=== PATIENT | female | born 1935 | race Caucasian/White ===

== ENCOUNTER → 2016-05-17 | Outpatient (CLI) | payer OTHER | LOC: FIMAGING 09:00 | PROVIDERS: ATTEND Surgery | DX: I65.23 Occlusion and stenosis of bilateral carotid arteries (principal); I10 Essential (primary) hypertension ==

== ENCOUNTER → 2016-09-24 | Outpatient (CLI) | payer OTHER | LOC: BMCIMAGING 13:30 | PROVIDERS: ATTEND Family Medicine | DX: J18.1 Lobar pneumonia, unspecified organism (principal) ==

== ENCOUNTER → 2016-10-24 | Outpatient (CLI) | payer OTHER | LOC: BHFA 08:45 | PROVIDERS: ATTEND Internal Medicine Cardiovascular Disease | DX: I10 Essential (primary) hypertension (principal); G45.8 Other transient cerebral ischemic attacks and related syndromes ==

== ENCOUNTER → 2016-11-20 | Outpatient (CLI) | payer OTHER ==
[~2016-11-20] MED LIST: IOPAMIDOL (ISOVUE 370) 100 ML BTL IV ONE
== END ==
LOC: FIMAGING 07:45
PROVIDERS: ATTEND Internal Medicine Cardiovascular Disease
DX: G45.8 Other transient cerebral ischemic attacks and related syndromes (principal)
CPT/HCPCS: 70498; Q9967

== ENCOUNTER → 2016-12-13 | Outpatient (CLI) | payer OTHER | LOC: FIMAGING 15:28 | PROVIDERS: ATTEND Psychiatry & Neurology Neurology | DX: I65.02 Occlusion and stenosis of left vertebral artery (principal) ==

== ENCOUNTER → 2017-02-28 | Outpatient (CLI) | payer OTHER | LOC: BHFA 10:45 | PROVIDERS: ATTEND Internal Medicine Cardiovascular Disease | DX: I25.10 Atherosclerotic heart disease of native coronary artery without angina pectoris (principal) ==

== ENCOUNTER → 2017-02-28 | Outpatient (CLI) | payer OTHER | LOC: BHFA 10:45 | PROVIDERS: ATTEND Internal Medicine Cardiovascular Disease | DX: I63.9 Cerebral infarction, unspecified (principal); I77.9 Disorder of arteries and arterioles, unspecified ==

== ENCOUNTER → 2017-03-11 | Outpatient (CLI) | payer OTHER | LOC: BMCIMAGING 15:16 | PROVIDERS: ATTEND Internal Medicine | DX: K59.00 Constipation, unspecified (principal); R31.9 Hematuria, unspecified | CPT/HCPCS: 74020; G0463; 81003-QW-PO ==

== ENCOUNTER 2017-07-05 19:14 | Emergency (ER) | payer OTHER ==
[2017-07-05] MEDS ORDERED: LET GEL TOPICAL 1 EA SYR TP ONE ×2 (20:16→20:19)
[2017-07-05] MEDS ORDERED: ACETAMINOPHEN 325 MG TAB PO ONE (20:17)
--- NOTE | 2017-07-05 20:53 | EDPHY ---
General Time Seen by Provider: 07/05/17 19:49 Narrative: CHIEF COMPLAINT: HISTORY OF PRESENT ILLNESS: REVIEW OF SYSTEMS: Ten systems reviewed and are negative unless otherwise noted in the HPI PCP: SPECIALISTS: PAST MEDICAL HISTORY: PAST SURGICAL HISTORY: SOCIAL HISTORY: FAMILY HISTORY: EXAMINATION General Appearance: Alert, no distress Head: normocephalic, atraumatic Eyes: Pupils equal and round, no conjunctival pallor or injection ENT, Mouth: Mucous membranes moist Neck: Normal inspection, supple, non-tender Respiratory: Lungs are clear to auscultation Cardiovascular: Regular rate and rhythm Gastrointestinal: Abdomen is soft and nontender Back: non-tender, no bony abnormalities Neurological: A&O, nonfocal, normal gait Skin: Warm and dry, no rash Extremities: Nontender, no pedal edema Psychiatric: Mood and affect normal DIFFERENTIAL DIAGNOSES: Including but not limited to MDM: SUPERVISION: - History Smoking Status: Never smoked - Objective Vital Signs: Initial Vital Signs Temperature (C) 97.9 F 07/05/17 19:24 Heart Rate 67 07/05/17 19:24 Respiratory Rate 18 07/05/17 19:24 Blood Pressure 157/69 H 07/05/17 19:24 O2 Sat (%) 92 07/05/17 19:24 O2 Delivery Mode Room Air Allergies/Adverse Reactions: No Known Allergies Allergy (Verified 07/05/17 19:28) Home Medications: Medication Instructions Recorded Levothyroxine [Synthroid 150 mcg 0.125 mcg PO DAILY@1000 08/29/10 (*)] Lisinopril [Zestril 10 mg (*)] 10 mg PO DAILY 08/29/10 Metoprolol Tartrate 09/22/13 Losartan Potassium 07/05/17 Unk Blood Thinner 07/05/17 Unk Osteoporosis Med 07/05/17 Departure - Departure Referrals: Hiro White MD [Primary Care Provider] - As per Instructions
--- NOTE | 2017-07-05 21:11 | EDPHY ---
H & P Stated Complaint: pt tripped/fell, lacs to both hands and chin, pain in RUE/R chest - Personal History Tetanus Vaccine Date: < than 10 yrs - Medical/Surgical History Hx Asthma: No Hx Chronic Respiratory Disease: No Hx Diabetes: No Hx Cardiac Disease: Yes Hx Renal Disease: No Hx Cirrhosis: No Hx Alcoholism: No Hx HIV/AIDS: No Hx Splenectomy or Spleen Trauma: No Other PMH: HX: HTN, HYPOTHYROID, osteoporosis, tonsillectomy, appendectomy, hip surg, L knee replacement, varicose vein surg - Social History Smoking Status: Never smoked Time Seen by Provider: 07/05/17 19:49 HPI/ROS: CHIEF COMPLAINT: Chin laceration, hand and foot pain HISTORY OF PRESENT ILLNESS: This is an 82-year-old female in general good health who presents after suffering a mechanical fall in which she stumbled, fell forward striking her chin on cement. She did not strike her skull or lose consciousness. She landed on her outstretched hands and then her chest. She has some pain at the site of skin tears on her palms and reports chest pain in the midsternal region. She was not experiencing chest pain prior to the fall and denies any preceding symptoms such lightheadedness or headache. She does not currently feel short of breath. She also reports some pain in the 1st and 2nd toes on the right foot. She is not aware of any numbness or weakness of arms or legs. REVIEW OF SYSTEMS: A ten point review of systems was performed and is negative with the exception of the items mentioned in the HPI. Past medical history: Hypertension Osteoporosis Varicose veins Hypothyroid Past surgical history: Tonsillectomy Appendectomy Hip surgery Knee surgery Family history: Social history: She is . She raised 5 children. No tobacco use. General: The patient is in no acute distress. The patient is alert. Bigg Coma Score is 15 . Head: Normocephalic/atraumatic. No Flores's sign. No raccoon eyes. Neck: Nontender with palpation of the cervical spine. Trachea is midline. Nexus criteria are negative (no midline tenderness or distracting injury, mental status is not altered, no focal neurologic deficits). Eyes: PERRLA. EOMI. No subconjunctival hemorrhage. Ears nose and throat: No hemotympanum. Nares are patent and without clotted nasal blood. No dental injury or malocclusion. No trismus. Airway is patent. There is a 2.5 cm laceration underneath her chin. No palpable facial bone tenderness or deformity. Lungs: No rib tenderness, crepitus, or subcutaneous emphysema. She has tenderness over the sternum, no crepitance. Breath sounds are equal and audible bilaterally. No wheezes, rales, or rhonchi. Cardiac: Heart has regular rate and rhythm without murmur, rub, or gallop. Abdomen: Soft, nontender, and nondistended. No guarding or rebound. Bowel sounds are present. Back: No vertebral tenderness. Skin: No ecchymoses. Skin is warm and dry. Scattered skin tears over the palms of both hands. No tenderness palpation of the carpals, metacarpals, and phalanges. Full active range of motion of both hands. Pulses: 2+ radial pulses bilaterally. 2+ dorsalis pedis pulses bilaterally. Extremities: No bony point tenderness with evaluation of long bones of all 4 extremities. Pelvis is stable. Hips are nontender. She has tenderness palpation of the right great and 2nd toe. No palpable bony deformity. No right ankle tenderness or pain with active range of motion. Pulses: 2+ femoral and dorsalis pedis pulses bilaterally. Neuro: The patient is alert and oriented. Sensation is intact to light touch of all 4 extremities. Strength is 5/5 with testing of major motor groups in upper and lower extremities. PERRLA. EOMI. Facial expression symmetric. Hearing intact to spoken voice. (Heena Granger) Constitutional: Initial Vital Signs Temperature (C) 36.6 C 07/05/17 19:24 Heart Rate 67 07/05/17 19:24 Respiratory Rate 18 07/05/17 19:24 Blood Pressure 157/69 H 07/05/17 19:24 O2 Sat (%) 92 07/05/17 19:24 O2 Delivery Mode Room Air Allergies/Adverse Reactions: No Known Allergies Allergy (Verified 07/05/17 19:28) Home Medications: Medication Instructions Recorded Levothyroxine [Synthroid 150 mcg 0.125 mcg PO DAILY@1000 08/29/10 (*)] Lisinopril [Zestril 10 mg (*)] 10 mg PO DAILY 08/29/10 Metoprolol Tartrate 09/22/13 Losartan Potassium 07/05/17 Unk Blood Thinner 07/05/17 Unk Osteoporosis Med 07/05/17 Medical Decision Making - Diagnostics Imaging: I viewed and interpreted images myself Procedures: My involvement the care this patient is solely for procedure. Please see the note of the attending physician for all other aspects of care. She has chin laceration status post fall that does require suture repair. PROCEDURE: Laceration repair Consent: Verbal Location: Chin Length of repair: 2.5 cm Complexity: Simple Layer involvement: Single Anesthesia: Local per 1% lidocaine plain. 5 mL Irrigation: Extensive Debridement: None Procedure description: Following good anesthesia, the wound was copiously irrigated. Wound bed was explored with a sterile glove, and there is no foreign body noted. Wound borders were approximated well with good hemostasis. Tolerated well without complication. Suture/Staple material: 6-0 Prolene, 3 simple interrupted sutures Wound care: Routine as discussed Suture/Staple removal: 5-7 Days (Jaswinder High) ED Course/Re-evaluation: Laceration was repaired by REX Gottlieb. I reviewed her chest x-ray. I do not see evidence of a sternal or rib fracture. No pneumothorax. I do not see fracture dislocation on the x-rays of the right foot. Hand skin tears cleaned and dressed by ED medical delivery technician. Patient serially examined. She remained neurologically intact, with no new injuries identified. We discussed CT of head. She did not strike her head, has no headache, no confusion, no visual changes, no new numbness or weakness. She would like to forego head scanning. (Heena Granger) - Data Points Medications Given: Discontinued Medications Acetaminophen (Tylenol) 650 mg PO EDNOW ONE Stop: 07/05/17 20:18 Last Admin: 07/05/17 20:21 Dose: 650 mg Tetracaine/Epinephrine/Lidocaine (Let Gel Topical) 1 ea TP EDNOW ONE Stop: 07/05/17 20:20 Last Admin: 07/05/17 20:20 Dose: 1 ea Departure - Departure Disposition: Home, Routine, Self-Care Clinical Impression: Laceration of chin, Abrasion of hand and fingers, Foot contusion, Contusion of chest wall with intact skin Condition: Good Instructions: Contusion in Adults (ED), Abrasion (ED), R.I.C.E. Treatment (ED) , Facial Laceration (ED) Additional Instructions: Adult Pain & Fever Control: We recommend Acetaminophen (Tylenol) and Ibuprofen (Motrin,Advil) for pain and fever control. When fever is high or pain severe, both drugs can be used at the same time, but at different intervals. Please note the time differences. Your dose is: Acetaminophen 650mg every 4 to 6 hours Ibuprofen 400mg every 8 hours with food OR Note: do not take Acetaminophen with Hydrocodone (Vicodin, Lortab) or Oycodone (Percocet). These medications also contain Acetaminophen. No more than 3000mg of Acetaminophen should be taken in 24 hours (for an adult). If you develop new or concerning symptoms such as headache, confusion, change in vision, vomiting, seizures, weakness of an arm or leg, new numbness--you should call 911 and be re-evaluated immediately. As we discussed, you take a blood thinner and this can increase your chances of having a more serious head injury, with bleeding. I do not find any evidence of that kind of injury right now but I want you to be alerted to the danger signs that should prompt you to return immediately. The stitches should be removed in 7 days. Keep them clean and dry for 24 hours. After that, you can gently wash you chin and dab it dry. You can cover the stitches with a regular bandaid if you'd like. Referrals: Hiro White MD [Primary Care Provider] - As per Instructions
[2017-07-05 21:47] VITALS: BP 148/68
== END 2017-07-05 21:46 | disposition home or self-care (01) ==
PROC: 0HQ1XZZ Repair Face Skin, External Approach (ICD-10-PCS; principal; 2017-07-05)
DX: S01.81XA Laceration without foreign body of other part of head, initial encounter (principal); S90.31XA Contusion of right foot, initial encounter; S20.219A Contusion of unspecified front wall of thorax, initial encounter; S60.511A Abrasion of right hand, initial encounter; S60.512A Abrasion of left hand, initial encounter; I10 Essential (primary) hypertension; E03.9 Hypothyroidism, unspecified; W01.198A Fall on same level from slipping, tripping and stumbling with subsequent striking against other object, initial encounter

== ENCOUNTER 2017-07-07 21:01 | Emergency (ER) | payer OTHER ==
[2017-07-07 21:25] VITALS: BP 136/71
--- NOTE | 2017-07-07 21:46 | EDPHY ---
H & P Stated Complaint: Seen, D/C'd two days ago with sutures in chin. Now bruising and concerned Time Seen by Provider: 07/07/17 21:37 HPI/ROS: CHIEF COMPLAINT: Contusion HISTORY OF PRESENT ILLNESS: The patient is an 82-year-old female who fell Friday and has a laceration to her chin. It has been repaired with sutures. Today she noticed some increased bruising traveling down her neck. She does take Plavix for history of carotid artery disease. She was concerned about infection we decided to come here to get checked out. She has not had a fever. No discharge. REVIEW OF SYSTEMS: Constitutional: denies: chills, fever, recent illness, recent injury EENTM: denies: blurred vision, double vision, nose congestion Respiratory: denies: cough, shortness of breath Cardiac: denies: chest pain, irregular heart rate, lightheadedness, palpitations Gastrointestinal/Abdominal: denies: abdominal pain, diarrhea, nausea, vomiting, blood streaked stools Genitourinary: denies: dysuria, frequency, hematuria, pain Musculoskeletal: denies: joint pain, muscle pain Skin: see HPI Neurological: denies: headache, numbness, paresthesia, tingling, dizziness, weakness Hematologic/Lymphatic: denies: blood clots, easy bleeding, easy bruising Immunologic/allergic: denies: HIV/AIDS, transplant EXAM: GENERAL: Well-appearing, well-nourished and in no acute distress. HEAD: Atraumatic, normocephalic. EYES: Pupils equal round and reactive to light, extraocular movements intact, sclera anicteric, conjunctiva are normal. ENT: TMs normal, nares patent, oropharynx clear without exudates. Moist mucous membranes. NECK: Normal range of motion, supple without lymphadenopathy or JVD. LUNGS: Breath sounds clear to auscultation bilaterally and equal. No wheezes rales or rhonchi. HEART: Regular rate and rhythm without murmurs, rubs or gallops. ABDOMEN: Soft, nontender, normoactive bowel sounds. No guarding, no rebound. No masses appreciated. BACK: No CVA tenderness, no spinal tenderness, step-offs or deformities EXTREMITIES: Normal range of motion, no pitting or edema. No clubbing or cyanosis. NEUROLOGICAL: Cranial nerves II through XII grossly intact. Normal speech, normal gait. 5/5 strength, normal movement in all extremities, normal sensation PSYCH: Normal mood, normal affect. SKIN: Well-healing laceration, Small amount of bruising around the laceration. Some gravitation of the bruise. Source: Patient Exam Limitations: No limitations - Personal History Current Tetanus/Diphtheria Vaccine: Yes Current Tetanus Diphtheria and Acellular Pertussis (TDAP): Yes Tetanus Vaccine Date: < than 10 yrs - Medical/Surgical History Hx Asthma: No Hx Chronic Respiratory Disease: No Hx Diabetes: No Hx Cardiac Disease: Yes Hx Renal Disease: No Hx Cirrhosis: No Hx Alcoholism: No Hx HIV/AIDS: No Hx Splenectomy or Spleen Trauma: No Other PMH: HX: HTN, HYPOTHYROID, osteoporosis, tonsillectomy, appendectomy, hip surg, L knee replacement, varicose vein surg. - Family History Significant Family History: No pertinent family hx - Social History Smoking Status: Never smoked Alcohol Use: Sober Drug Use: None Constitutional: Initial Vital Signs Temperature (C) 36.5 C 07/07/17 21:20 Heart Rate 60 07/07/17 21:20 Respiratory Rate 17 07/07/17 21:20 Blood Pressure 136/71 H 07/07/17 21:20 O2 Sat (%) 95 07/07/17 21:20 O2 Delivery Mode Room Air Allergies/Adverse Reactions: No Known Allergies Allergy (Verified 07/05/17 19:28) Home Medications: Medication Instructions Recorded Levothyroxine [Synthroid 150 mcg 0.125 mcg PO DAILY@1000 08/29/10 (*)] Lisinopril [Zestril 10 mg (*)] 10 mg PO DAILY 08/29/10 Metoprolol Tartrate 09/22/13 Losartan Potassium 07/05/17 Unk Blood Thinner 07/05/17 Unk Osteoporosis Med 07/05/17 Medical Decision Making ED Course/Re-evaluation: We discussed bruising that is to be expected considering she is on Plavix. I suggested ice. We discussed suture care and removal. She is happy with this and declines further workup or testing at this time. Differential Diagnosis: Partial list of the Differential diagnosis considered include but were not limited to; contusion, infection and although unlikely based on the history and physical exam, I also considered foreign body, dehiscence, fracture, skull fracture. I discussed these differential diagnoses and the plan with the patient as well as the usual and expected course. The patient understands that the diagnosis is provisional and that in medicine we are not always correct and that further workup is often warranted. Usual and customary warnings were given. All of the patient's questions were answered. The patient was instructed to return to the emergency department should the symptoms at all worsen or return, otherwise to followup with the physician as we discussed. Departure - Departure Disposition: Home, Routine, Self-Care Clinical Impression: Laceration Contusion Qualifiers: Encounter type: initial encounter Contusion area: neck Qualified Code(s): S10.93XA - Contusion of unspecified part of neck, initial encounter Condition: Fair Instructions: Contusion in Adults (ED) Referrals: Hiro White MD [Primary Care Provider] - As per Instructions
== END 2017-07-07 21:50 | disposition home or self-care (01) ==
DX: S01.81XD Laceration without foreign body of other part of head, subsequent encounter (principal); I10 Essential (primary) hypertension; S10.93XD Contusion of unspecified part of neck, subsequent encounter; I25.10 Atherosclerotic heart disease of native coronary artery without angina pectoris; W18.39XD Other fall on same level, subsequent encounter

== ENCOUNTER → 2018-02-07 | Outpatient (CLI) | payer OTHER | LOC: BMCIMAGING 11:11 | PROVIDERS: ATTEND Family Medicine | DX: S82.61XA Displaced fracture of lateral malleolus of right fibula, initial encounter for closed fracture (principal) ==

== ENCOUNTER → 2018-03-27 | Outpatient (CLI) | payer OTHER | LOC: BMCIMAGING 10:20 | PROVIDERS: ATTEND Emergency Medicine | DX: M25.861 Other specified joint disorders, right knee (principal); S82.831D Other fracture of upper and lower end of right fibula, subsequent encounter for closed fracture with routine healing ==

== ENCOUNTER → 2018-05-20 | Outpatient (CLI) | payer OTHER | LOC: FIMAGING 07:47 | PROVIDERS: ATTEND Radiology Diagnostic Radiology | DX: I83.93 Asymptomatic varicose veins of bilateral lower extremities (principal) ==